=== PATIENT | female | born 1955 | race Two or more races ===

== ENCOUNTER 2018-09-04 18:03 | Emergency (ER) | payer OTHER ==
[~2018-09-04] VITALS: Ht 162.6 cm; Wt 83.9 kg
[~2018-09-04 18:03] MED LIST: AMBIEN10 MG PO; CATAFLAM50 MG PO; CIPRO750 MG PO; Colace 100MG PO; DESPEC-DM TABL1 EACH PO; HYDROCHLOROTHIA25 MG PO; LASIX20 MG PO; LEVAQUIN750 MG PO; NABUMETONE500 MG PO; NEURONTIN PO; NEURONTIN300 MG PO; NIFE60TA3 PO; ORPH100T PO; PERCOCET 5/3251 TAB PO; ZANTAC300 MG PO
== END 2018-09-04 22:47 | disposition home or self-care (01) ==
LOC: ER 18:03
DX: S29.011A Strain of muscle and tendon of front wall of thorax, initial encounter (principal); W18.09XA Striking against other object with subsequent fall, initial encounter; Y93.89 Activity, other specified; Y92.018 Other place in single-family (private) house as the place of occurrence of the external cause; Y99.8 Other external cause status

== ENCOUNTER 2019-04-27 20:47 | Emergency (ER) | payer OTHER ==
[~2019-04-27] VITALS: Ht 162.6 cm; Wt 77.1 kg
== END 2019-04-27 23:39 | disposition home or self-care (01) ==
LOC: ER 20:47
DX: R10.32 Left lower quadrant pain (principal); R10.31 Right lower quadrant pain; R19.5 Other fecal abnormalities

== ENCOUNTER 2020-06-25 07:49 | Outpatient (CLI) | payer OTHER | END 2020-06-25 08:09 | disposition home or self-care (01) | LOC: NUCLEAR 07:49 | PROVIDERS: ATTEND Internal Medicine Gastroenterology | DX: K31.84 Gastroparesis (principal) | CPT/HCPCS: 78264; A9541 ==

== ENCOUNTER → 2020-11-24 | Emergency (ER) | payer OTHER ==
[~2020-11-24] VITALS: Ht 162.6 cm; Wt 83.9 kg
[~2020-11-24] MED LIST changes: +ATARAX25 MG PO; +CYMBALTA60 MG PO; +ZYRTEC10 M3 PO
== END | disposition home or self-care (01) ==
LOC: ER 12:56
DX: L29.8 Other pruritus (principal)

== ENCOUNTER → 2021-04-10 | Outpatient (CLI) | payer OTHER | END | disposition home or self-care (01) | LOC: RAD 11:41 | PROVIDERS: ATTEND Obstetrics & Gynecology | DX: R10.2 Pelvic and perineal pain (principal); R31.0 Gross hematuria ==

== ENCOUNTER 2022-07-12 11:15 | Inpatient (IN) | payer OTHER ==
[~2022-07-12] VITALS: Ht 162.6 cm; Wt 81.6 kg
[2022-07-12] MEDS ORDERED: LIPITOR20 MG PO (15:15)
[2022-07-12] MEDS ORDERED: LEVOTHYROXINE25 MCG PO (15:15)
[2022-07-12] MEDS ORDERED: ADULT LOW DOSE81 M1 PO (15:16)
[2022-07-12] MEDS ORDERED: ZESTRIL20 MG PO (15:16)
[2022-07-14] MEDS ORDERED: NABUMETONE750 MG (14:04)
[2022-07-14] MEDS ORDERED: CHLORTHALIDONE25 MG (14:04)
[2022-07-14] MEDS ORDERED: OMEPRAZOLE40 MG (14:04)
[2022-07-14] MEDS ORDERED: PEPCID AC20 MG (14:04)
[2022-07-15] MEDS ORDERED: PERCOCET 5-3251 EACH PO (11:06)
[2022-07-15] MEDS ORDERED: MIRALAX17 GM PO (11:08)
== END 2022-07-15 13:29 | disposition home or self-care (01) | DRG 748 ==
LOC: SURH 07-14 05:30 → O/R 07-14 05:30 → SURG 07-14 10:45 → SURH 07-14 13:27
PROVIDERS: ADMIT Surgery; ATTEND Surgery
PROC: 3E0T3BZ Introduction of Anesthetic Agent into Peripheral Nerves and Plexi, Percutaneous Approach (ICD-10-PCS; 2022-07-14)
PROC: 0JQC0ZZ Repair Pelvic Region Subcutaneous Tissue and Fascia, Open Approach (ICD-10-PCS; principal; 2022-07-14 10:45)
DX: N81.6 Rectocele (principal); Z20.822 Contact with and (suspected) exposure to COVID-19

== ENCOUNTER 2023-02-02 10:13 | Emergency (ER) | payer OTHER ==
[~2023-02-02] VITALS: Ht 162.6 cm; Wt 81.6 kg
[~2023-02-02 10:13] MED LIST changes: +ADULT LOW DOSE81 M1 PO; +CHLORTHALIDONE25 MG; +LEVOTHYROXINE25 MCG PO; +LIPITOR20 MG PO; +MIRALAX17 GM PO; +NABUMETONE750 MG; +OMEPRAZOLE40 MG; +PEPCID AC20 MG; +PERCOCET 5-3251 EACH PO; +ZESTRIL20 MG PO
[2023-02-02] MEDS ORDERED: DICLOFENAC SODI75 MG PO (10:51)
[2023-02-02] MEDS ORDERED: NORFLEX100MG PO (10:51)
== END 2023-02-02 11:53 | disposition home or self-care (01) ==
LOC: ER 10:13
DX: M54.9 Dorsalgia, unspecified (principal); M79.606 Pain in leg, unspecified
CPT/HCPCS: 96372; 99284; J1885; J3301

== ENCOUNTER 2024-09-08 08:34 | Emergency (ER) | payer OTHER ==
[~2024-09-08] VITALS: Ht 162.6 cm; Wt 81.6 kg
[~2024-09-08 08:34] MED LIST changes: +DICLOFENAC SODI75 MG PO; +NORFLEX100MG PO
[2024-09-08] MEDS ORDERED: CARVEDILOL6.25 M1 PO (09:01)
[2024-09-08] MEDS ORDERED: MEDROLPACK PO (09:25)
[2024-09-08] MEDS ORDERED: KETOROLAC TROMETHAMINE 60 MG VIAL IM ONE ×3 (09:30→09:58)
== END 2024-09-08 10:04 | disposition home or self-care (01) ==
LOC: ER 08:35
DX: M25.50 Pain in unspecified joint (principal); M25.511 Pain in right shoulder; I10 Essential (primary) hypertension; E03.8 Other specified hypothyroidism
CPT/HCPCS: 96372; 99282; J1885

== ENCOUNTER 2025-01-05 14:42 | Emergency (ER) | payer OTHER ==
[~2025-01-05] VITALS: Ht 162.6 cm; Wt 83.5 kg
[~2025-01-05 14:42] MED LIST changes: +CARVEDILOL6.25 M1 PO; +MEDROLPACK PO
[2025-01-05] MEDS ORDERED: KETOROLAC TROMETHAMINE 15 MG VIAL IV STA (16:56)
[2025-01-05] MEDS ORDERED: CIPROFLOXACIN IN 5 % DEXTROSE 400 MG/200 ML PIGGYBAG IV STA (16:56)
[2025-01-05 17:34] LABS: BASO % 0.1 % (0.1-1.2); EOS # 0.14 (0.04-0.54); EOS % 1.9 % (0.7-7.0); LYMPH # 1.08 (1.18-3.74); LYMPH % 14.5 % (19.3-53.1); MEAN PLATELET VOLUME 11.60 fl (9.4-12.4); MONO # 0.48 (0.24-0.82); MONO % 6.4 % (4.7-12.5); NEUT # 5.73 (1.56-6.13); NEUT % 76.8 % (34.0-71.1); RED CELL DISTRIBUTION WIDTH 15.9 % (11.6-14.4)
[2025-01-05 17:48] LABS: URINE APPEARANCE Clear; URINE BILIRRUBIN Negative (NEGATIVE); URINE BLOOD Moderate; URINE COLOR Yellow; URINE GLUCOSE Negative (NEGATIVE); URINE KETONE Negative (NEGATIVE); URINE LEUKOCYTE Large; URINE NITRATE Negative; URINE PROTEIN Trace (NEGATIVE); URINE UROBILINOGEN 0.2 E.U./dl
[2025-01-05 17:52] LABS: URINE BACTERIA 7816.6 uL (0.0-1933); URINE EPITHELIAL CELLS 4.6 uL (0.0-38.8); URINE RBC 37.2 uL (0.0-20.8); URINE WBC 1440.8 uL (0.0-23.2)
[2025-01-05 18:09] LABS: BUN CREA RATIO 13.0 (7.0-25.0); CREATININE SERUM 1.57 mg/dL (0.55-1.02); GFR 32.57; GLUCOSE FASTING 89.0 mg/dL (65-100); OSMOLALITY SERUM 291.0 MOSM/KG (275-295)
[2025-01-05 18:15] LABS: URINE CAST 0.58 uL (0.0-1.40)
[2025-01-05 18:19] LABS: COVID-19 AG NEGATIVE (NEGATIVE)
== END 2025-01-05 19:08 | disposition home or self-care (01) ==
LOC: ER 14:42
DX: J06.9 Acute upper respiratory infection, unspecified (principal); R30.0 Dysuria; Z20.822 Contact with and (suspected) exposure to COVID-19